=== PATIENT | female | born 1965 | race Caucasian/White ===

== ENCOUNTER 2025-01-28 11:31 | Outpatient (CLI) | payer BC, SELFPAY ==
--- OUTSIDE RECORDS SUMMARY | 2025-01-28 11:35 | XMS_ITS | Clinical Summary ---
Author Organization [facility] Address [address] [place] [address] Care Team Providers Care Head Athletic Trainer/Strength Coach Name Role Phone Junior Tatum MD Primary Care Provider [phone] Allergies Active Allergy Reactions Criticality Noted Date Comments Ciprofloxacin Hcl Rash Low 01/22/2016 Just through IV, can take orally Breaks her arm out Sulfa Antibiotics GI Intolerance Low 01/22/2016 Tramadol Hcl GI Intolerance Low 01/22/2016 Medications simvastatin (ZOCOR) 10 MG tablet Take 20 mg by mouth Every Night. Active potassium chloride (K-DUR) 10 MEQ CR tablet Take 10 mEq by mouth Daily. Active aspirin 81 MG EC tablet Take 81 mg by mouth daily. Active Loratadine 10 MG capsule Take 10 mg by mouth Daily. Active esomeprazole (NexIUM) 20 MG capsule Take 20 mg by mouth every morning before breakfast. Active fluticasone (FLONASE) 50 MCG/ACT nasal spray 2 sprays into each nostril Daily As Needed for Rhinitis. Active gabapentin (NEURONTIN) 100 MG capsule Take 200 mg by mouth Daily. Active albuterol (PROVENTIL HFA;VENTOLIN HFA) 108 (90 Base) MCG/ACT inhaler Inhale 2 puffs Every 4 (Four) Hours As Needed for Wheezing. 1 inhaler 02/23/2017 Active nitrofurantoin (MACRODANTIN) 50 MG capsule Take 50 mg by mouth Every Night. Active Cholecalciferol (VITAMIN D-3 PO) Take 1 tablet by mouth Daily. Active cetirizine (zyrTEC) 10 MG tablet Take 10 mg by mouth Daily. Active Active Problems Problem Noted Date Diagnosed Date Mixed hyperlipidemia 01/30/2018 Overview (01/30/2018): Added automatically from request for surgery [id number] Tobacco abuse 01/30/2018 Overview (01/30/2018): Added automatically from request for surgery [id number] Family history of early CAD 01/30/2018 Overview (01/30/2018): Added automatically from request for surgery [id number] Chest pain 01/30/2018 Overview (01/30/2018): Added automatically from request for surgery [id number] Family History Medical History Relation Name Comments Cancer Brother Heart disease Father Alzheimer's disease Mother COPD Sister Relation Name Status Comments Brother Father Mother Sister Social History Tobacco Use Types Packs/Day Years Used Date Smoking Tobacco: Every Day Cigarettes 1 33 Smokeless Tobacco: Never Tobacco Cessation:Ready to Q uit: No Alcohol Use Standard Drinks/Week Comments No 0 (1 standard drink = 0.6 oz pur e alcohol) Abuse Screen Answer Date Recorded Unsafe at Home or Work/School Not on file Feels Threatened by Someone? Not on file 12/2022 Does Anyone Keep You from Co ntacting Others or Doint Things Outside the Home? Not on file 02/04/2023 Physical Sign of Abuse Present Not on file 1 Housing Stability Answer Date Recorded Current Living Arrangements Not on file 12/2022 Potentially Unsafe Housing Conditions Not on david e 02/04/2023 Family and Community Support Answer Clint e Recorded Help with Day-to-Day Activities Not on file 02/04/2023 Lonely or Isolated Not on file 02/04/2023 Employment Answer Date Recorded Do you want help finding or keeping work or a antoine b? Not on file 02/04/2023 Disabilities Answer Date Recorded Concentrating, Remembering, or Making Decisions Difficulty Not on file 02/04/2023 Doing Errands Independently Difficulty Not on fi le 02/04/2023 Education Answer Date Recorded Help with school or training? Not on file Preferred Language Not on file 02/04/2023 Comments No Sex and Gender Information Value Date Recorded Sex Assigned at Not on file Legal Sex Female 10:23 AM EDT Gender Identity Not on file Sexual Orientation Not on file Last Filed Vital Signs Vital Sign Reading Time Taken Comments Blood Pressure 120/78 01/16/2019 12:39 PM EDT Pulse 73 01/16/2019 12:39 PM EDT Temperature 36.7 C (98 F) 01/16/2019 12:39 PM EDT Respiratory Rate 16 01/16/2019 12:39 PM EDT Oxygen Saturation 99% 01/16/2019 12:39 PM EDT Inhaled Oxygen Concentration - - Weight 77.3 kg (170 lb 6.4 oz) 01/16/2019 12:39 PM EDT Height 167.6 cm (5' 6 ) 01/16/2019 12:39 PM EDT Body Mass Index 27.5 01/16/2019 12:39 PM EDT Plan of Treatment Health Maintenance Due Date Last Done Comments Annual Gynecologic Pelvic and Breast Exam 1966 TDAP/TD VACCINES (1 - Tdap) 1985 MAMMOGRAM 2006 COLOGUARD 09/30/2011 COLON CANCER SCREENING 5 YEAR SIGMOIDOSCOPY 09/30/2011 COLONOSCOPY 09/30/2011 COLORECTAL CANCER SCREENING 09/30/2011 CT COLONOGRAPHY 09/30/2011 FECAL OCCULT BLOOD TEST 09/30/2011 FIT Testing (1 year) 09/30/2011 Pneumococcal Vaccine 50+ (1 of 1 - PCV) 2016 ZOSTER VACCINE (1 of 2) 2016 ANNUAL PHYSICAL 12/18/2016 HEPATITIS C SCREENING 12/18/2016 LIPID PANEL 02/12/2019 02/12/2018 INFLUENZA VACCINE 11/27/2024 Procedures Procedure Name Priority Date/Time Associated Diagnosis Comments LIPID PANEL Routine 02/12/2018 8:27 AM EDT Chest pain, unspecified type Tobacco abuse Essential hypertension Dyslipidemia from Last 3 Months or Most Recently Relevant to Health Maintenance Results * (ABNORMAL) Lipid Panel (02/12/2018 8:27 AM EDT) Total Cholesterol 145 0 - 200 mg/dL 02/12/2018 9:24 AM EDT [facility] Triglycerides 271(H) 0 - 150 mg/dL 02/12/2018 9:24 AM EDT [facility] HDL Cholesterol 27(L) 40 - 60 mg/dL 02/12/2018 9:24 AM EDT [facility] LDL Cholesterol 83 0 - 130 mg/dL 02/12/2018 9:24 AM EDT [facility] Blood Venipuncture / Unknown 02/12/2018 8:27 AM EDT 02/12/2018 8:43 AM EDT Narrative [facility] - 02/12/2018 9:24 AM EDT Cholesterol Reference Ranges: Desirable < 200 mg/dL Borderline 200-239 mg/dL High Risk > 239 mg/dL Triglyceride Reference Ranges: Normal < 150 mg/dL Borderline 150-199 mg/dL High 200-499 mg/dL Very High > 499 mg/dL HDL Reference Ranges: Low < 40 mg/dL High > 59 mg/dL LDL Reference Ranges: Optimal < 100 mg/dL Near Optimal 100-129 mg/dL Borderline 130-159 mg/dL High 160-189 mg/dL Very High > 189 mg/dL Destini Hughes PA-C LAB BLOOD ORDERABLES Final Result [facility]
[address] [place] [address], from Last 3 Months or Most Recently Relevant to Health Maintenance Insurance [id number] PPO Advance Directives * CPR (Attempt to Resuscitate) (Latest Code Status on File) Date Activated Date Inactivated Comments 02/14/2018 12:10 PM 02/14/2018 6:42 PM Question Answer Comments Code Status (Patient has no pulse and is not breathing): CPR (Attempt to Resuscitate) Medical Interventions (Patie nt has pulse or is breathing): Full Level Of Support Discussed With: Patient Care Teams Head Athletic Trainer/Strength Coach Relationship Specialty Start Date End Date Junior Tatum MD [address] [place] [address] PCP - General Family Medicine 01/22/16
== END 2025-01-28 23:59 | disposition home or self-care (01) ==
LOC: LAB 11:32
PROVIDERS: PCP Family Medicine; Visit Provider Internal Medicine Gastroenterology
DX: K52.9 Noninfective gastroenteritis and colitis, unspecified (principal)
CPT/HCPCS: 82653; 83993

== ENCOUNTER 2025-02-11 10:52 | Day surgery (SDC) | payer BC, SELFPAY ==
[2025-02-05 13:51] VITALS: BMI 24.7
--- NOTE | 2025-02-10 16:44 | EXP.HP ---
History of Present Illness *Admission Date: 02/11/25 *History of present illness: Mrs. Malave is a 59-year-old female who is here for diagnostic colonoscopy. The patient primarily reports chronic and persistent bowel control difficulties with fecal urgency, frequency, diarrhea and fecal incontinence. She does wear adult diapers. She has a fear of loss of bowel control and must always know where the bathroom is. This does impair her quality of life. She also has bladder control difficulties. She reports generalized abdominal pain and chronic and persistent nausea. She does use Zofran but states this does not work well. She has lost a marked amount of weight over the last couple of years (50 to 60 pounds). She did have a colonoscopy with me she believes in 2019. She did have a partial colectomy/low anterior resection (Dr. Madhav Cason) secondary to chronic diverticulitis. The patient reports no blood with her stool but does note some mucus. She reports no significant gassiness or bloating. [facility] Disclaimer: The information contained in this section may have been updated after the patient was seen, as this information can be updated by other users. Medical History GERD (gastroesophageal reflux disease) Vitamin D deficiency Chronic back pain Hypercholesteremia Surgical History Hx of cholecystectomy History of carpal tunnel surgery History of knee surgery History of hysterectomy History of partial colectomy Family History Father Stomach cancer Hypertension Coronary artery disease Mother Coronary artery disease Alzheimers disease Social History (Updated 02/11/25 @ 11:42 by Edwin Morris CRNA) Smoking Status: Current every day smoker alcohol intake: never substance use type: denies use current occupational status: disabled Travel in the last 8 weeks?: None Have you lived/traveled outside US in past 30 days?: No Contact w/someone who lives/traveled outside US past 30 days?: No Exposure to someone with infectious disease in past 14 days?: No Do you have a fever (greater than 100.4 F or 38 C)?: No Have you tested positive for COVID-19?: No Exposed to someone with COVID-19 in past 14 days?: No Do you have a sore throat?: No Do you have a cough?: No Do you have any weakness?: No Are you experiencing any nausea/vomitting?: No Do you have any diarrhea?: No Are you experiencing any unusual bleeding?: No Do you have any muscle aches/pain?: No Do you have any abdominal pain?: No Are you experiencing loss of taste or smell?: No Review of Systems Review of Systems Review of systems (narrative): Negative *Cardiovascular Comments: Negative *Gastrointestinal Comments: Negative *Genitourinary Comments: Negative *Musculoskeletal Comments: Negative *Neurologic Comments: Negative Meds Home Medications and Allergies Home Medications ?Medication ?Instructions ?Recorded ?Confirmed ?Type albuterol sulfate 90 mcg/actuation 2 puff inhalation NEEDED PRN SOA 01/26/25 02/11/25 History aerosol inhaler amitriptyline 10 mg tablet 10 mg PO BID #60 tabs 01/26/25 02/11/25 Rx calcium 600 mg (as 1 cap PO DAILY 01/26/25 02/11/25 History carbonate)-vitamin D3 62.5 mcg (2,500 unit) capsule calcium carbonate (Tums) 200 mg PO BID PRN heart burn 01/26/25 02/11/25 History citalopram 40 mg tablet (Celexa) 40 mg PO DAILY 01/26/25 02/11/25 History esomeprazole magnesium 20 mg 20 mg PO DAILY 01/26/25 02/11/25 History capsule,delayed release (Nexium) furosemide 20 mg tablet 20 mg PO DAILY 01/26/25 02/11/25 History gabapentin 300 mg capsule 300 mg PO HS 01/26/25 02/11/25 History metoclopramide HCl 5 mg tablet 5 mg PO QACHS 01/26/25 02/11/25 History (Reglan) montelukast 10 mg tablet 10 mg PO DAILY 01/26/25 02/11/25 History nitrofurantoin macrocrystal 50 mg 50 mg PO DAILY 01/26/25 02/11/25 History capsule ondansetron 8 mg disintegrating 8 mg PO DAILY PRN Nausea 01/26/25 02/11/25 History tablet potassium chloride 10 mEq 10 meq PO DAILY 01/26/25 02/11/25 History tablet,extended release simvastatin 40 mg tablet 40 mg PO HS 01/26/25 02/11/25 History sodium,potassium,mag sulfates 17.5 See Rx Instructions PO .COMPLEX 01/29/25 02/11/25 Rx gram-3.13 gram-1.6 gram oral soln #354 mL (Suprep Bowel Prep Kit) New Prescriptions to Start Prescriptions: Allergies Allergy/AdvReac Type Severity Reaction Status Date / Time ciprofloxacin (From Cipro) Allergy Severe Redness of Verified 02/11/25 11:25 Skin Sulfa (Sulfonamide Allergy Severe Gastrointestinal Verified 02/11/25 11:25 Antibiotics) Upset tramadol (From Ultram) Allergy Severe Gastrointestinal Verified 02/11/25 11:25 Upset Exam *Routine HEENT Exam Head: Present normocephalic Eye: Present EOMI and PERRL ENT: Present mucous membranes moist *Routine Neck Exam Neck: Present supple *Routine Respiratory Exam Respiratory: Present CTA bilaterally *Routine Cardiovascular Exam Cardiovascular: Present RRR *Routine Abdominal Exam Abdominal: Present soft and normoactive bowel sounds; Absent tenderness *Routine Rectal Exam Rectal:: deferred *Routine Genitalia Exam Genitalia:: deferred *Routine Extremities Exam Extremities: Absent cyanosis, clubbing or edema *Routine Skin Exam Skin: Present warm; Absent rash *Routine Neurological Exam Neurological: Present alert and oriented X3 Assessment and Plan *Assessment and plan (1) Fear of loss of control of bowel: Status: Acute Category: Medical Code(s): F40.248 - Other situational type phobia (2) Incomplete defecation: Status: Acute Category: Medical Code(s): R15.0 - Incomplete defecation (3) Incontinence of feces with fecal urgency: Status: Acute Category: Medical Code(s): R15.9 - Full incontinence of feces; R15.2 - Fecal urgency (4) Functional abdominal pain syndrome: Status: Acute Category: Medical Code(s): R10.9 - Unspecified abdominal pain (5) Chronic diarrhea: Status: Acute Category: Medical Code(s): K52.9 - Noninfective gastroenteritis and colitis, unspecified (6) Abnormal weight loss: Status: Acute Category: Medical Code(s): R63.4 - Abnormal weight loss (7) Generalized abdominal pain: Status: Acute Category: Medical Code(s): R10.84 - Generalized abdominal pain Plan A/P: 1. Fecal urgency/frequency with fecal incontinence and incomplete defecation is the preprocedural diagnosis. The patient has chronic diarrhea and also has generalized abdominal pain and weight loss the patient will be anesthetized/sedated using MAC sedation. The patient has been seen and examined. Cardiac and lung assessment prior to the examination is stable. Proceed with planned diagnostic colonoscopy.
--- NOTE | 2025-02-11 07:15 | P.PCN_ITS ---
[facility] Procedure Note Date: 02/11/25 Time: 12:47 Procedure Note:: Colonoscopy Procedure Report: Colonoscopy with cold snare polypectomy and cold biopsies Endoscopist: Jung Cazares II, MD Referring physician: Ward Rubio MD MD Date of Procedure: February 11, 2025 Equipment: Olympus [id number] adult colonoscope Sedation: MAC sedation Indication: Mrs. Malave is a 59-year-old female who is here for diagnostic colonoscopy. The patient primarily reports chronic and persistent bowel control difficulties with fecal urgency, frequency, diarrhea and fecal incontinence. She does wear adult diapers. She has a fear of loss of bowel control and must always know where the bathroom is. This does impair her quality of life. She also has bladder control difficulties. She reports generalized abdominal pain and chronic and persistent nausea. She does use Zofran but states this does not work well. She has lost a marked amount of weight over the last couple of years (50 to 60 pounds). She did have a colonoscopy with ca in 2018 and had 4 polyps (small tubular adenomas x 4). Her last colonoscopy in January 2021 revealed 2 benign polyps (tubular adenoma x 1 and small serrated adenoma x 1) which were removed.. She did have a partial colectomy/low anterior resection (Dr. Madhav Cason) secondary to chronic diverticulitis. The patient reports no blood with her stool but does note some mucus. She reports no significant gassiness or bloating. Her recent stool testing showed normal fecal calprotectin and normal fecal elastase. Procedure: Prior to the procedure, a history and physical exam was performed, and patient's medications and allergies were reviewed. The risks, benefits and alternatives of the sedation and procedure were discussed with the patient. All questions were answered and informed consent was obtained. The patient was brought to the procedure room. Patient identification and proposed procedure were verified by the physician and the nurse. The patient was placed in a left lateral decubitus position and the scope was passed under direct vision. Throughout the procedure, the patient's blood pressure, pulse, and oxygen saturations were monitored continuously. The colonoscopy was accomplished without difficulty. The patient tolerated the procedure well. Findings: On digital rectal examination there was normal rectal tone. There were no external hemorrhoids. The colonoscope was introduced through the anal canal to the rectum and advanced to the cecum. The ileocecal valve and appendiceal orifice were identified. The scope was advanced a short distance into the ileum which appeared grossly normal. The scope was then withdrawn into the colon. There were 3 colon polyps (cecum x 1 (6 mm), ascending x 1 (4 mm) and descending x 1 (4 mm)). These were all removed via cold snare polypectomy. The remaining cecum, ascending, transverse and descending colon were normal. Cold biopsies were taken randomly from the right colon to rule out microscopic colitis. There were a few remaining diverticuli in the descending colon. The colocolonic anastomosis (end-to-side) was normal in appearance. The remaining rectum was normal. Upon retroflexion within the rectum there were grade 1-2 internal hemorrhoids. The preparation was excellent throughout with [place] Preparation Score of 9. The cecal time was 14 minutes. Impression: 1. Colonic polyps x 3 2. Mild left-sided diverticulosis 3. Normal [place]-colonic anastomosis (end-to-side) 4. Grade 1-2 internal hemorrhoids Plan: I will follow-up the polyp histology and random cold biopsies. I would recommend repeat screening/surveillance colonoscopy in 5 years. If her biopsies show evidence of microscopic colitis, would consider budesonide treatment. If these biopsies are normal, we will discuss using Viberzi or alosetron. If bowel control/incomplete defecation with incontinence continue I would then consider InterStim trial.
[2025-02-11 11:09] VITALS: BP 115/71; PULSE 90; RESP 16; TEMP 36.6; O2SAT 98; BMI 24.7
[2025-02-11] MEDS: LACTATED RINGERS 1000ML 1,000 ML 50 ML IV (11:27)
--- NOTE | 2025-02-11 11:41 | EXP.ANES.CKL ---
[facility] Disclaimer: The information contained in this section may have been updated after the patient was seen, as this information can be updated by other users. Medical History GERD (gastroesophageal reflux disease) Vitamin D deficiency Chronic back pain Hypercholesteremia Surgical History Hx of cholecystectomy History of carpal tunnel surgery History of knee surgery History of hysterectomy History of partial colectomy Family History Father Stomach cancer Hypertension Coronary artery disease Mother Coronary artery disease Alzheimers disease Social History Smoking Status: Current every day smoker alcohol intake: never substance use type: denies use current occupational status: disabled Travel in the last 8 weeks?: None [facility] Anesthesia Checklist Patient Identification Patient Identification: Arm Band Structural Data Admitted From: Home Planned Operative Procedure/s: Colonoscopy Consent for Planned Operative Procedure(s) Verified: Yes Verified Documents: Surgical Consent and History and Physical NPO Status Verified Time NPO: 09:00 (finished prep) Additional verifications Anesthesia Reactions: No Airway Assessment Mallampati Score:: Class II C-Spine Mobility Assessed: Yes TMJ Mobility Assessed: Yes Dentition: Edentulous Neurological Assessment Level of Consciousness: Awake, Alert and Appropriate Anesthesia Plan Anesthesia Risk discussed: Yes Anesthesia Plan: Verified Anesthesia Type: MAC
[2025-02-11 12:49] VITALS: BP 82/50; PULSE 81; RESP 14; TEMP 36.4; O2SAT 93
[2025-02-11 12:59] VITALS: BP 88/59; PULSE 70; RESP 15; TEMP 36.4; O2SAT 95
[2025-02-11 13:09] VITALS: BP 105/62; PULSE 69; RESP 17; TEMP 36.4; O2SAT 95
[2025-02-11 13:19] VITALS: BP 106/58; PULSE 70; RESP 17; TEMP 36.4; O2SAT 94
== END 2025-02-11 13:50 | disposition home or self-care (01) ==
PROVIDERS: PCP Family Medicine; Visit Provider Internal Medicine Gastroenterology
PROC: 0DJD8ZZ Inspection of Lower Intestinal Tract, Via Natural or Artificial Opening Endoscopic (ICD-10-PCS; CPT 45378; principal; 2025-02-11 12:30)
DX: D12.4 Benign neoplasm of descending colon (principal); D12.0 Benign neoplasm of cecum; D12.2 Benign neoplasm of ascending colon; K57.30 Diverticulosis of large intestine without perforation or abscess without bleeding; K64.0 First degree hemorrhoids; K64.1 Second degree hemorrhoids; K52.9 Noninfective gastroenteritis and colitis, unspecified; F40.248 Other situational type phobia; F17.200 Nicotine dependence, unspecified, uncomplicated; Z90.49 Acquired absence of other specified parts of digestive tract; Z88.2 Allergy status to sulfonamides; Z88.1 Allergy status to other antibiotic agents; Z88.5 Allergy status to narcotic agent; Z86.0101 Personal history of adenomatous and serrated colon polyps
CPT/HCPCS: 45380; 45385; J2003; J2704; J7120

== ENCOUNTER 2025-02-15 08:49 | Outpatient (CLI) | payer BC, SELFPAY ==
[2025-02-15] MEDS: SODIUM CHLORIDE 0.9% 10ML SYR (RAD ONLY) 10 ML IV (09:11)
[2025-02-15] MEDS: IOPAMIDOL-370 (76%);100ML BOTTLE 75 ML IV (09:12)
--- NOTE | 2025-02-15 09:15 | CT_ITS ---
FINAL REPORT TECHNIQUE: Axial CT of the abdomen and pelvis, without and with IV contrast. This study was performed with techniques to keep radiation doses as low as reasonably achievable, (ALARA). Individualized dose reduction techniques using automated exposure control or adjustment of mA and/or kV according to the patient''s size were employed. CLINICAL HISTORY: Generalized abdominal pain and weight loss COMPARISON: none FINDINGS: Abdomen: Lung bases are clear. Severe fatty change of the liver without evidence of mass. The remaining solid abdominal organs are unremarkable. Precontrast imaging shows no renal stone disease. Postcontrast imaging of the kidneys shows no mass or obstruction. There is long segment wall thickening of the colon compatible with nonspecific colitis. No small bowel wall thickening. Central mesenteric vessels are widely patent. Pelvis: T colonic wall thickening extending to the level of the proximal sigmoid colon. Surgical changes in the distal sigmoid colon are noted. There is nonvisualization of the appendix, possibly removed at time of hysterectomy. No fluid collection or adenopathy is seen. IMPRESSION: Nonspecific colitis. No evidence of metastatic disease or adenopathy. Reviewed, Interpreted and Dictated by Rufus Naidu MD Transcribed by Delfina Tijerina Authenticated and [facility]
== END 2025-02-15 23:59 | disposition home or self-care (01) ==
LOC: RAD 08:50
PROVIDERS: PCP Family Medicine; Visit Provider Internal Medicine Gastroenterology
DX: K52.9 Noninfective gastroenteritis and colitis, unspecified (principal); R63.4 Abnormal weight loss
CPT/HCPCS: 74178; Q9967